=== PATIENT | female | born 1955 | race Caucasian/White ===

== ENCOUNTER → 2021-04-02 10:43 | Outpatient (CLI) | payer MEDICARE, SELFPAY ==
--- NOTE | ~2021-04-02 | DEXA_ITS ---
Bone Density Report Name: HENNA LUCAS Age: 65 Sex: Female Ethnicity: White Date of : 1955 Indication: postmenopausal; screening for osteoporosis; parental hip fracture; prior fracture; hysterectomy; Referring Provider: DEVIKA KIMBLE Study: Bone densitometry was performed. Exam Date: April 02, 2021 Accession number: [id number] Bone Density: Region BMD T-score Z-score Classification AP Spine (L1-L4) 0.987 -0.5 1.4 Normal World Health Organization criteria for BMD impression classify patients as: Normal (T-score at or above -1.0), Osteopenia (T-score between -1.0 and -2.5), or Osteoporosis (T-score at or below -2.5). Previous Exams: Region Exam Age BMD T-score BMD Change BMD Change Date g/cm2 vs Baseline vs Previous AP Spine(L1-L4) 04/02/2021 65 0.987 -0.5 -0.011 -0.011 08/03/2006 51 0.998 -0.4 *Denotes significance at 95% confidence level, LSC for AP Spine = 0.022 g/cm2 Clinical Information Provided by Patient: Has had a low trauma fracture Parent has had a hip fracture Smokes Has used the following medications: Vitamin D Has the following medical conditions: Hysterectomy Patient maximum height was 63 Menopause Age: 28 No regular weight bearing exercise Onset of menses at age 10 Number of children 1 Impression: The patient has normal bone mass. The patient has risk factors, including: parental hip fracture, smoking, previous fracture. No significant bone loss was observed. Discussion: BONE DENSITY IS ABOVE THE MINIMUM DESIRABLE LEVEL AT ALL SKELETAL SITES TESTED. This patient?s bone mineral density is above the minimum desirable level (T-score -1.0 or better) at all sites measured. The patient should follow a healthful lifestyle (good nutrition with adequate calcium and vitamin D, and appropriate weight-bearing exercise). Follow-Up: Consider repeating this study in 5 years or sooner if there is some new clinical indication. Reported by: WERO on 04/02/2021 10:57:00 AM. Reviewed, dictated and finalized at location ADenae AVINA
== END ==
PROVIDERS: PCP Internal Medicine; Visit Provider Obstetrics & Gynecology Gynecology
DX: Z78.0 Asymptomatic menopausal state (principal)
CPT/HCPCS: 77080

== ENCOUNTER → 2021-05-05 12:13 | Outpatient (CLI) | payer MEDICARE, SELFPAY ==
--- NOTE | ~2021-05-05 | MM_ITS ---
EXAMINATION: MM screening opal BI w shaun HISTORY: Screening TECHNIQUE: Craniocaudal and mediolateral oblique 3-D tomosynthesis images were obtained and synthetic 2-D images were generated. CAD analysis was submitted and interpreted. COMPARISON: No prior mammogram is available for comparison at this institution. BREAST PARENCHYMAL COMPOSITION: The breasts are heterogenously dense, which may obscure small masses FINDINGS: There are asymmetries in the upper outer quadrant of the right breast and medial aspect of the left breast on CC view. There are no suspicious calcifications. IMPRESSION: 1. Bilateral breast asymmetries. 2. Comparison to previous outside mammograms recommended. BI-RADS Category 0: Incomplete: Needs additional imaging evaluation. Reviewed, dictated and finalized at location A. [employer]
== END ==
PROVIDERS: PCP Internal Medicine; Visit Provider Obstetrics & Gynecology Gynecology
DX: Z12.31 Encounter for screening mammogram for malignant neoplasm of breast (principal); R92.8 Other abnormal and inconclusive findings on diagnostic imaging of breast
CPT/HCPCS: 77063; 77067

== ENCOUNTER → 2021-07-16 08:39 | Outpatient (CLI) | payer MEDICARE, SELFPAY ==
--- NOTE | ~2021-07-16 | MMUS_ITS ---
EXAMINATION: MM diagnostic opal BI w shaun, US breast BI complete HISTORY: New bilateral mammographic asymmetries reported on 05/05/2021 screening mammogram, at upper o uter quadrant of the right breast and medial left breast on craniocaudal view TECHNIQUE: Additional 3-D tomosynthesis images of both breasts were performed and synthetic 2-D image s were generated. CAD analysis was submitted and interpreted. High resolution bilateral complete raym[address] st ultrasound including all 4 quadrants and subareolar areas was performed. COMPARISON: 05/05/2021 bilateral screening mammogram BREAST PARENCHYMAL COMPOSITION: The breasts are heterogeneously dense, which may obscure small masses . FINDINGS: MAMMOGRAPHIC FINDINGS: Suggestion of architectural distortion in the upper outer quadrant of the right breast. 6 mm circumscribed low-density opacity is noted in the posterior upper mid left breast (MLO Tomosynth esis image 32/61). The mammographic features suggest benign process. Otherwise no suspicious reproducible mass is noted. The heterogeneously dense stroma however may obsc ure masses. Bilateral complete ultrasound examination therefore was performed. ULTRASOUND: Right breast: 6:00 4 cm from nipple: Parallel circumscribed hypoechoic mildly irregular solid lesion measuring 3 x 5.3 x 6 mm dimension, without internal vascularity or posterior shadowing. Ultrasound-guided biopsy i s recommended. 10:00 7 cm from nipple: There is a ill-defined irregular up to 8mm wide area of hypoechogenicity with posterior shadowing, adjacent vascularity on color flow imaging. Ultrasound-guided biopsy is recomme nded. Left breast: No suspicious mass or shadowing, cyst or other significant sonographic finding is noted. IMPRESSION: 1. Suspicious findings of right breast at 6:00 4 cm from nipple and 10:00 7 cm from nipple 2. Ultrasound-guided biopsy of right 6:00 and 10:00 lesions is recommended. BI-RADS category 4, suspicious findings. Dr. Cruz telephoned the report and ultrasound guided biopsy recommendations for right breast 6:00 and 10:00 lesions on 07/16/2021 at 1015 hours to [employer] Reviewed, dictated and finalized at location A. IMPRESSION: 1. Suspicious findings of right breast at 6:00 4 cm from nipple and 10:00 7 cm from nipple 2. Ultrasound-guided biopsy of right 6:00 and 10:00 lesions is recommended. BI-RADS category 4, suspicious findings. Dr. Cruz telephoned the report and ultrasound guided biopsy recommendations for right breast 6:00 and 10:00 lesions on 07/16/2021 at 1015 hours to [facility]
== END ==
PROVIDERS: PCP Internal Medicine; Visit Provider Obstetrics & Gynecology Gynecology
DX: R92.8 Other abnormal and inconclusive findings on diagnostic imaging of breast (principal); N63.23 Unspecified lump in the left breast, lower outer quadrant; N63.22 Unspecified lump in the left breast, upper inner quadrant
CPT/HCPCS: 76641; 77062; 77066; G0279